=== PATIENT | male | born 2000 | race African-American/Black ===

== ENCOUNTER 2019-11-18 20:35 | Emergency (ER) | payer MEDICAID ==
[~2019-11-18] VITALS: Ht 190.5 cm; Wt 66.2 kg
[~2019-11-18 20:35] MED LIST: IBUPROFEN
[2019-11-18 21:00] VITALS: BP 108/69
== END 2019-11-19 00:49 | disposition left against medical advice (07) ==
LOC: ER 20:35
DX: M79.81 Nontraumatic hematoma of soft tissue (principal); Z53.21 Procedure and treatment not carried out due to patient leaving prior to being seen by health care provider

== ENCOUNTER 2022-07-03 03:52 | Emergency (ER) | payer MEDICAID ==
[~2022-07-03] VITALS: Ht 188 cm; Wt 76.0 kg
[2022-07-03] MEDS ORDERED: CEFTRIAXONE SODIUM 500 MG/VIAL IM ONE (06:15)
[2022-07-03] MEDS ORDERED: DOXY-244 MT (06:15)
[2022-07-03] MEDS ORDERED: DOXYCYCLINE HYCLATE 100MG CAPSULE PO ONE (06:15)
[2022-07-03] MEDS ORDERED: LIDOCAINE HCL 1% 20ML VIAL (Pyxis) INJ INFIL ONE (06:15)
[2022-07-03 06:39] VITALS: BP 127/78
[2022-07-03 06:41] LABS: CLARITY URINE CLEAR (CLEAR); COLOR URINE YELLOW (YELLOW); KETONES URINE NEGATIVE (NEGATIVE); LEUKOCYTE ESTERASE URINE 3+ (NEGATIVE); NITRITE URINE NEGATIVE (NEGATIVE); OCCULT BLOOD URINE NEGATIVE (NEGATIVE); PH URINE 6.5 (4.5-8.0); PROTEIN URINE NEGATIVE (NEGATIVE); SPECIFIC GRAVITY URINE 1.008 (1.005-1.030); UROBILINOGEN URINE 0.2 E.U./dL (0.2-1.0)
[2022-07-05 05:10] LABS: NEISSERIA GONORRHOEAE NAA Positive (Negative)
== END 2022-07-03 06:30 | disposition home or self-care (01) ==
LOC: ER 03:52
DX: Z20.2 Contact with and (suspected) exposure to infections with a predominantly sexual mode of transmission (principal); R36.9 Urethral discharge, unspecified
CPT/HCPCS: 81003; 87086; 87491; 87591; 99283; J0696; Z7610

== ENCOUNTER 2022-10-31 19:55 | Emergency (ER) | payer MEDICAID ==
[~2022-10-31] VITALS: Ht 190.5 cm; Wt 77.0 kg
[~2022-10-31 19:55] MED LIST changes: +DOXY-244 MT
[2022-10-31 20:24] VITALS: BP 146/94
== END 2022-11-01 05:44 | disposition left against medical advice (07) ==
LOC: ER 20:37
DX: Z53.21 Procedure and treatment not carried out due to patient leaving prior to being seen by health care provider (principal)
CPT/HCPCS: 99281